=== PATIENT | male | born 1965 | race African-American/Black ===

== ENCOUNTER → 2018-07-19 | Outpatient (CLI) | payer BC | LOC: COL.RAD 07-16 09:45 | DX: D18.03 Hemangioma of intra-abdominal structures (principal); K82.4 Cholesterolosis of gallbladder; R74.8 Abnormal levels of other serum enzymes ==

== ENCOUNTER → 2018-08-30 | Outpatient (CLI) | payer BC ==
[~2018-08-30] VITALS: Ht 182.9 cm; Wt 99.2 kg
[2018-08-30] VITALS (15 sets, daily range): BP systolic 121–154; BP diastolic 82–99; PULSE 63–81
== END ==
LOC: COL.RAD 09:34
DX: R74.8 Abnormal levels of other serum enzymes (principal); R76.8 Other specified abnormal immunological findings in serum
CPT/HCPCS: 32106; 32108

== ENCOUNTER → 2019-02-21 | Outpatient (CLI) | payer BC | LOC: COL.RAD 08:12 | DX: K74.3 Primary biliary cirrhosis (principal); K82.4 Cholesterolosis of gallbladder; R76.8 Other specified abnormal immunological findings in serum ==

== ENCOUNTER → 2019-09-02 | Outpatient (CLI) | payer BC | LOC: COL.RAD 07:30 | DX: K74.3 Primary biliary cirrhosis (principal); R76.8 Other specified abnormal immunological findings in serum; R74.8 Abnormal levels of other serum enzymes; K76.9 Liver disease, unspecified; K80.20 Calculus of gallbladder without cholecystitis without obstruction ==

== ENCOUNTER 2020-07-26 06:41 | Outpatient (CLI) | payer BC ==
[2020-07-26] VITALS (18 sets, daily range): BP systolic 126–145; BP diastolic 79–98; PULSE 52–78
[~2020-07-26] VITALS: Ht 182.9 cm; Wt 101.5 kg
[~2020-07-26 06:41] MED LIST: URSO250 MG PO
[2020-07-26] MEDS ORDERED: VITAMIND3 5000 PO (06:53)
--- NOTE | 2020-07-26 12:05 | NUR ---
Pt assisted out to car by wheelchair with and belongings. Pt has remained free of complaints through recovery period. Bandaid remains clean, dry and intact. IV DC'd with catheter intact.
== END 2020-07-26 12:11 | disposition home or self-care (01) ==
LOC: COL.RAD 06:41
DX: R91.1 Solitary pulmonary nodule (principal)